=== PATIENT | male | born 1975 | race Caucasian/White ===

== ENCOUNTER 2018-01-04 15:08 | Emergency (ER) | payer MEDICAID ==
[~2018-01-04] VITALS: Ht 188 cm; Wt 88.0 kg
[~2018-01-04 15:08] MED LIST: HYDR-569 PO
[2018-01-04] MEDS ORDERED: GABA-530 PO (16:29)
[2018-01-04 16:51] VITALS: BP 137/85
== END 2018-01-04 16:53 | disposition home or self-care (01) ==
LOC: ER 15:08
DX: R20.2 Paresthesia of skin (principal); M25.571 Pain in right ankle and joints of right foot
CPT/HCPCS: 73630; 99284

== ENCOUNTER 2019-01-08 00:12 | Emergency (ER) | payer MEDICAID ==
[~2019-01-08] VITALS: Ht 189.2 cm; Wt 80.9 kg
[~2019-01-08 00:12] MED LIST changes: +GABA-530 PO; +HYDR-4383 PO; -HYDR-569 PO
[2019-01-08 00:22] VITALS: BP 122/85
[2019-01-08] MEDS ORDERED: ONDA4TAB6 PO (01:12)
--- NOTE | 2019-01-08 01:15 | NUR ---
states her for nausea and resulting increased salivation he believes is related to "whatever they are cutting my meth with".
== END 2019-01-08 01:19 | disposition home or self-care (01) ==
LOC: ER 00:13
DX: R11.0 Nausea (principal); F12.90 Cannabis use, unspecified, uncomplicated; F15.90 Other stimulant use, unspecified, uncomplicated; Z98.890 Other specified postprocedural states; Z91.018 Allergy to other foods
CPT/HCPCS: 82948; 99282

== ENCOUNTER 2019-07-05 07:29 | Day surgery (SDC) | payer MEDICAID ==
[2019-07-04 16:13] LABS: CLARITY,URINE CLEAR (Clear); COLOR,URINE YELLOW (Yellow); GLUCOSE, URINE NEGATIVE (Neg); KETONES,URINE NEGATIVE (Neg); LEUKOCYTE ESTERASE ,URINE NEGATIVE (Neg); NITRITES, URINE NEGATIVE (Neg); OCCULT BLOOD,URINE TRACE-INTACT (Neg); PH,URINE 5.5 (4.8-8.0); PROTEIN,URINE NEGATIVE (Neg); UROBILINOGEN,URINE 0.2 E.U/dL (0.2-1.0)
[2019-07-04 16:14] LABS: BASOPHILS # (AUTO) 0.1 X10'3 (0-0.2); BASOPHILS % (AUTO) 1.2 % (0-1); EOSINOPHILS # (AUTO) 0.4 X10'3 (0-0.9); EOSINOPHILS % (AUTO) 3.9 % (0-6); LYMPHOCYTES # (AUTO) 2.5 X10'3 (1.1-4.8); LYMPHOCYTES % (AUTO) 26.8 % (21-51); MEAN CORPUSCULAR HEMOGLOBIN 29.4 PG (27.0-31.0); MEAN CORPUSCULAR VOLUME 89.3 FL (78-98); MEAN PLATELET VOLUME 7.6 FL (7.4-10.4); MONOCYTES # (AUTO) 0.8 X10'3 (0-0.9); NEUTROPHILS # (AUTO) 5.4 X10'3 (1.8-7.7); NEUTROPHILS % (AUTO) 59.1 % (42-75); PRE OP HEMATOCRIT 45.3 % (42.0-52.0); PRE OP HEMOGLOBIN 14.9 g/dL (14.0-17.9); PRE OP PLATELET COUNT 380 X10'3 (140-440); RED BLOOD COUNT 5.08 X10'6 (4.70-6.10); RED CELL DISTRIBUTION WIDTH 14.7 % (11.5-14.5)
[2019-07-04 16:14] LABS: UA COLLECTION TYPE VOIDED
[2019-07-04 16:20] LABS: SPERM FEW /HPF (NEGATIVE)
[2019-07-04 16:21] LABS: BACTERIA,URINE NONE SEEN /HPF (Neg); RBC,URINE 0-2 /HPF (0-2); SQUAMOUS EPITHELIAL CELL,UR NONE SEEN /LPF (FEW); WBC,URINE 0-4 /HPF (0-4)
[2019-07-04 16:32] LABS: ALBUMIN 3.9 G/DL (3.4-5.0); ALBUMIN/GLOBULIN RATIO 1.1 (1.1-1.5); ALKALINE PHOSPHATASE 69 IU/L (46-116); BLOOD UREA NITROGEN 22 MG/DL (7-18); BUN/CREATININE RATIO 22.9 (5.4-32.0); CALCIUM 9.5 MG/DL (8.5-10.1); CHLORIDE 105 MMOL/L (99-107); CREATININE 0.96 MG/DL (0.60-1.10); PRE OP ALT 29 U/L (30-65); PRE OP ANION GAP 8 (8-16); PRE OP AST 21 U/L (10-37); PRE OP BILIRUB, TOTAL 0.5 MG/DL (0.0-1.0); PRE OP GLUCOSE 92 MG/DL (70-104); PRE OP POTASSIUM 4.5 MMOL/L (3.4-5.1); PRE OP SODIUM 141 MMOL/L (135-145); TOTAL CARBON DIOXIDE 28.5 MMOL/L (24-32); TOTAL PROTEIN 7.6 G/DL (6.4-8.2); eGFR 85 ML/MIN
[~2019-07-05] VITALS: Ht 188 cm; Wt 82.4 kg
[2019-07-05] VITALS (15 sets, daily range): BP systolic 103–122; BP diastolic 64–79
[~2019-07-05 07:29] MED LIST changes: +ALBU8HFA PO; -GABA-530 PO; -HYDR-4383 PO; +NAPR220C15 PO; +albuterol 2.5 MG/3 ML nebule NEB ONE; +cefazolin/dext.iso 2gm/100 ML IV ONE; +famotidine 20mg tablet PO ONE; +ringers solution, lacted 1,000 ML IV SCH
[2019-07-05] MEDS ORDERED: ketorolac trometh. 30mg/ml inj. ONE (08:27)
[2019-07-05] MEDS ORDERED: LIDOcaine 1% 30ml preserv. free vial ONE (08:27)
[2019-07-05] MEDS ORDERED: ROPIVAcaine 0.5% (5mg/ml) 30ml vial ONE (08:28)
[2019-07-05] MEDS ORDERED: BUPIVAcaine/PF 2.5 mg/ml (0.25%) 30ml vial ONE (08:28)
[2019-07-05] MEDS ORDERED: midazolam 2 mg/2 ml injection ONE (11:12)
[2019-07-05] MEDS ORDERED: fentaNYL/PF 50MCG/1 ML 2ML syringe ONE (11:12)
[2019-07-05] MEDS ORDERED: sevoflurane 250ml liquid IH ONE (11:13)
[2019-07-05] MEDS ORDERED: dexamethasone sod phosphate 10mg/ml inj ONE (11:13)
[2019-07-05] MEDS ORDERED: albuterol 60 PUFF/8GM Inhaler IH ONE (11:13)
[2019-07-05] MEDS ORDERED: ondansetron/PF 4mg/2ml inj ONE (11:27)
[2019-07-05] MEDS ORDERED: LIDOcaine 2% (20mg/ml) 5ml vial ONE (11:30)
[2019-07-05] MEDS ORDERED: rocuronium 10mg/ml inj IV ONE (11:30)
[2019-07-05] MEDS ORDERED: propofol inj 20 ML IV ONE (11:30)
[2019-07-05] MEDS ORDERED: glycopyrrolate 0.2mg/ml inj ONE (11:30)
[2019-07-05] MEDS ORDERED: ringers solution, lacted 1,000 ML IV SCH (11:51)
[2019-07-05] MEDS ORDERED: labetalol 20mg/4ml (5mg/ml) syringe IV PRN (11:55)
[2019-07-05] MEDS ORDERED: fentaNYL/PF 50MCG/1 ML 2ML syringe IV PRN ×2 (11:55)
[2019-07-05] MEDS ORDERED: ondansetron/PF 4mg/2ml inj IV PRN (11:55)
[2019-07-05] MEDS ORDERED: morphine 4 MG/ML inj SYRINge IV PRN ×2 (11:55)
[2019-07-05] MEDS ORDERED: hydrALAZINE 20mg/ml inj. IV PRN (11:55)
--- NOTE | 2019-07-05 12:30 | NUR ---
Received from OR via BED, accompanied by Anesthesiologist DR FERRIS and report given by Anesthesiologist. PT VERY DROWSY, NO S/S OF DISTRESS/DISCOMFORT, LEFT ABDOMEN W/3 LAP SITES W/BANDAIDS CDI. Addendum: 07/05/19 at 1310 by Mojgan Castanon RN Amended: Links added.
--- NOTE | 2019-07-05 14:40 | NUR ---
D/C INSTRUCTIONS GIVEN AND GONE OVER W/PT, VERBALIZE UNDERSTANDING, PT D/CD TO HOME VIA PRIVATE VEHICLE W/O INCIDENT. Addendum: 07/05/19 at 1537 by Mojgan Castanon RN Amended: Links added.
== END 2019-07-05 14:40 | disposition home or self-care (01) ==
LOC: PAS 07:29
PROVIDERS: ATTEND Surgery
DX: K42.9 Umbilical hernia without obstruction or gangrene (principal); G89.18 Other acute postprocedural pain; Z98.890 Other specified postprocedural states; Z82.49 Family history of ischemic heart disease and other diseases of the circulatory system; Z83.3 Family history of diabetes mellitus; Z82.61 Family history of arthritis; Z87.891 Personal history of nicotine dependence; Z79.899 Other long term (current) drug therapy
CPT/HCPCS: 36415; 49652; 64488; 80053; 81001; 82948; 85025; 93005; C1781; J1100; J1885; J2001; J2250; J2405; J2704; J3010; J3490; S2900; A4215; A4618; J2795; J7120

== ENCOUNTER 2019-11-18 17:24 | Emergency (ER) | payer MEDICAID ==
[~2019-11-18] VITALS: Ht 188 cm; Wt 82.6 kg
[~2019-11-18 17:24] MED LIST changes: -albuterol 2.5 MG/3 ML nebule NEB ONE; -cefazolin/dext.iso 2gm/100 ML IV ONE; -famotidine 20mg tablet PO ONE; -ringers solution, lacted 1,000 ML IV SCH
[2019-11-18 17:44] VITALS: BP 121/75
[2019-11-18] MEDS ORDERED: SULF1TAB49 PO (18:58)
== END 2019-11-18 19:13 | disposition home or self-care (01) ==
LOC: ER 17:25
DX: L02.811 Cutaneous abscess of head [any part, except face] (principal); Z91.018 Allergy to other foods
CPT/HCPCS: 99283

== ENCOUNTER 2021-06-15 10:35 | Emergency (ER) | payer MEDICAID | END 2021-06-15 11:35 | disposition left against medical advice (07) | LOC: ER 10:35 | DX: L98.499 Non-pressure chronic ulcer of skin of other sites with unspecified severity (principal); Z53.21 Procedure and treatment not carried out due to patient leaving prior to being seen by health care provider ==

== ENCOUNTER 2021-06-18 20:43 | Emergency (ER) | payer MEDICAID ==
[~2021-06-18] VITALS: Ht 188 cm; Wt 83.3 kg
[2021-06-18] MEDS ORDERED: CYCL-1 PO (21:43)
[2021-06-18] MEDS ORDERED: CEPH-585 PO (21:43)
[2021-06-18 22:36] LABS: CLARITY,URINE CLEAR (Clear); COLOR,URINE YELLOW (Yellow); GLUCOSE, URINE NEGATIVE (Neg); KETONES,URINE NEGATIVE (Neg); LEUKOCYTE ESTERASE ,URINE NEGATIVE (Neg); NITRITES, URINE NEGATIVE (Neg); OCCULT BLOOD,URINE MODERATE (Neg); PROTEIN,URINE NEGATIVE (Neg); UROBILINOGEN,URINE 0.2 E.U/dL (0.2-1.0)
[2021-06-18 22:54] LABS: UA COLLECTION TYPE CLN CATCH MIDSTREAM
[2021-06-18 23:01] LABS: BACTERIA,URINE NONE SEEN /HPF (Neg)
[2021-06-18 23:02] LABS: MUCUS STRANDS FEW /LPF (Neg); SQUAMOUS EPITHELIAL CELL,UR FEW /LPF (FEW); TRANSITIONAL EPI CELLS,URINE FEW /HPF; WBC,URINE 0-4 /HPF (0-4)
[2021-06-18 23:26] VITALS: BP 115/72
== END 2021-06-18 23:31 | disposition home or self-care (01) ==
LOC: ER 20:43
DX: S39.012A Strain of muscle, fascia and tendon of lower back, initial encounter (principal); L03.116 Cellulitis of left lower limb; M54.89 Other dorsalgia; R10.84 Generalized abdominal pain; F17.200 Nicotine dependence, unspecified, uncomplicated; F15.90 Other stimulant use, unspecified, uncomplicated; Z91.018 Allergy to other foods; Z79.2 Long term (current) use of antibiotics; Z79.899 Other long term (current) drug therapy; X58.XXXA Exposure to other specified factors, initial encounter; Y93.89 Activity, other specified; Y92.89 Other specified places as the place of occurrence of the external cause; Y99.8 Other external cause status
CPT/HCPCS: 81001; 99283

== ENCOUNTER 2021-09-21 14:02 | Emergency (ER) | payer MEDICAID ==
[~2021-09-21] VITALS: Ht 188 cm; Wt 91.0 kg
[~2021-09-21 14:02] MED LIST changes: +CYCL-1 PO
[2021-09-21 14:28] VITALS: BP 141/91
== END 2021-09-21 18:56 | disposition home or self-care (01) ==
LOC: ER 14:04
DX: R59.0 Localized enlarged lymph nodes (principal); R13.10 Dysphagia, unspecified; F15.90 Other stimulant use, unspecified, uncomplicated; Z98.890 Other specified postprocedural states; Z91.018 Allergy to other foods; Z79.899 Other long term (current) drug therapy
CPT/HCPCS: 70490; 71045; 99284